=== PATIENT | female | born 1990 | race Hispanic/Latino ===

== ENCOUNTER 2019-06-17 13:23 | Emergency (ER) | payer BC ==
[2019-06-17] MEDS ORDERED: NA CHLORIDE 0.9% 1,000 ML ONE (14:06)
[2019-06-17] MEDS ORDERED: CEFTRIAXONE/SWI 1gm 1 GM/10 ML SYR ONE (14:06)
[2019-06-17 14:10] LABS: Urine Blood 1+ (NEG); Urine Glucose NEGATIVE (NEG); Urine Protein TRACE (NEG); Urine Specific Gravity 1.015 (1.005-1.030)
[2019-06-17 14:16] LABS: Urine Bacteria >50 /HPF (<20); Urine Culture Reflex Order REFLEXED
[2019-06-17 14:45] LABS: Absolute Lymphocytes (CBC) 0.8 K/uL (0.7-4.9); Basophils % 0.3 % (0-1.3); Hematocrit 35.9 % (36.0-45.0); Lymphocytes % 7.7 % (15.3-44.8); MPV 8.5 fL (7.6-11.3); RBC Red Blood Cell Count 4.11 M/uL (3.86-4.86)
[2019-06-17 15:01] LABS: BUN Blood Urea Nitrogen 6 mg/dL (7-18); Bicarbonate 22 mmol/L (21-32); Glucose Level 87 mg/dL (74-106); Potassium 3.5 mmol/L (3.5-5.1); Sodium Level 139 mmol/L (136-145)
--- NOTE | 2019-06-17 15:40 | RAD REPORT ---
EXAM DESCRIPTION: CTAbdomen Pelvis W Contrast - 06/17/2019 3:27 pm CLINICAL HISTORY: Abdominal pain. FLANK PAIN COMPARISON: <Comparisons> TECHNIQUE: Biphasic CT imaging of the abdomen and pelvis was performed with 100 ml non-ionic IV cont rast. All CT scans are performed using dose optimization technique as appropriate and may include automated exposure control or mA/KV adjustment according to patient size. FINDINGS: The lung bases are clear. The liver, spleen, pancreas, adrenal glands and kidneys are within normal limits. No bowel obstruction, free air, free fluid or abscess. Small fat containing umbilical hernia. The ramiro endix is normal. No evidence of significant lymphadenopathy. No suspicious bony findings. IUD is present in the uterus. IMPRESSION: No acute intra-abdominal or pelvic finding.
--- NOTE | 2019-06-17 15:49 | EDPHYS ---
Physician Documentation [facility] Name: Lissett Tierney Age: 29 yrs Sex: Female : 1990 Arrival Date: 06/17/2019 Time: 13:24 Bed 13 Private MD: ED Physician Zackary Kim HPI: 06/17 15:42 This 29 yrs old Female presents to ER via Ambulatory with complaints of Flank kb Pain. 15:42 The patient complains of pain in the left flank and right flank. The pain does not kb radiate. Onset: The symptoms/episode began/occurred today. Modifying factors: The symptoms are alleviated by nothing. the symptoms are aggravated by palpation/percussion. Associated signs and symptoms: Pertinent positives: dysuria, fever, urinary frequency. Severity of pain: At its worst the pain was moderate in the emergency department the pain is unchanged. The patient has experienced similar episodes in the past. The patient has not recently seen a physician. Pt reports she has had symptoms of a UTI for a week, but couldn't get a hold of her dr. Now has bliateral flank pain as well.. 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 - Social history:: Smoking status: Patient/guardian denies using tobacco. - Ebola Screening: : Patient denies travel to an Ebola-affected area in the 21 days before illness onset. ROS: 15:42 Neck: Negative for injury, pain, and swelling, Cardiovascular: Negative for chest pain, kb palpitations, and edema, Respiratory: Negative for shortness of breath, cough, wheezing, and pleuritic chest pain, Abdomen/GI: Negative for abdominal pain, nausea, vomiting, diarrhea, and constipation, MS/Extremity: Negative for injury and deformity, Skin: Negative for injury, rash, and discoloration, Neuro: Negative for headache, weakness, numbness, tingling, and seizure. 15:42 Constitutional: Positive for fever. 15:42 : Positive for urinary symptoms, flank pain, urinary frequency, burning with urination. Exam: 15:47 Constitutional: This is a well developed, well nourished patient who is awake, alert, kb and in no acute distress. Head/Face: Normocephalic, atraumatic. ENT: Nares patent. No nasal discharge, no septal abnormalities noted. Tympanic membranes are normal and external auditory canals are clear. Oropharynx with no redness, swelling, or masses, exudates, or evidence of obstruction, uvula midline. Mucous membranes moist. Neck: Trachea midline, no thyromegaly or masses palpated, and no cervical lymphadenopathy. Supple, full range of motion without nuchal rigidity, or vertebral point tenderness. No Meningismus. Chest/axilla: Normal chest wall appearance and motion. Nontender with no deformity. No lesions are appreciated. Cardiovascular: Regular rate and rhythm with a normal S1 and S2. No gallops, murmurs, or rubs. Normal PMI, no JVD. No pulse deficits. Respiratory: Lungs have equal breath sounds bilaterally, clear to auscultation and percussion. No rales, rhonchi or wheezes noted. No increased work of breathing, no retractions or nasal flaring. Abdomen/GI: Soft, non-tender, with normal bowel sounds. No distension or tympany. No guarding or rebound. No evidence of tenderness throughout. Skin: Warm, dry with normal turgor. Normal color with no rashes, no lesions, and no evidence of cellulitis. MS/ Extremity: Pulses equal, no cyanosis. Neurovascular intact. Full, normal range of motion. Neuro: Awake and alert, GCS 15, oriented to person, place, time, and situation. Cranial nerves II-XII grossly intact. Motor strength 5/5 in all extremities. Sensory grossly intact. Cerebellar exam normal. Normal gait. 15:47 Back: CVA tenderness, that is moderate, is noted bilaterally. Vital Signs: 13:32 BP 138 / 86; Pulse 101; Resp 20; Temp 99.6; Pulse Ox 98% on R/A; Weight 81.65 kg (R); aj1 Height 5 ft. 5 in. (165.10 cm) (R); 13:50 Temp 99.8(O); jp3 14:36 BP 104 / 64; Pulse 75; Resp 16; Pulse Ox 97% on R/A; Pain 10/10; rb1 15:30 BP 113 / 70; Pulse 76; Resp 15; Temp 99.0(O); Pulse Ox 99% on R/A; Pain 9/10; rb1 16:10 BP 103 / 63; Pulse 80; Resp 16; Temp 99.0(O); Pulse Ox 98% on R/A; Pain 8/10; rb1 13:32 Body Mass Index 29.95 (81.65 kg, 165.10 cm) aj1 MDM: 13:34 Patient medically screened. kb 15:47 Data reviewed: vital signs, nurses notes. Data interpreted: Pulse oximetry: on room air kb is 97 %. Interpretation: normal. Counseling: I had a detailed discussion with the patient and/or guardian regarding: the historical points, exam findings, and any diagnostic results supporting the discharge/admit diagnosis, lab results, radiology results, the need for outpatient follow up, a family practitioner, to return to the emergency department if symptoms worsen or persist or if there are any questions or concerns that arise at home. 06/17 13:34 Order name: Urine Microscopic Only; Complete Time: 14:18 kb 06/17 13:50 Order name: Urine Dipstick--Ancillary (enter results); Complete Time: 14:11 eb 06/17 13:50 Order name: Urine --Ancillary (enter results); Complete Time: 14:11 eb 06/17 13:56 Order name: CBC with Diff; Complete Time: 14:46 kb 06/17 13:56 Order name: Basic Metabolic Panel; Complete Time: 15:11 kb 06/17 14:19 Order name: Urine Culture EDSC 06/17 13:34 Order name: Urine Test (obtain specimen); Complete Time: 13:52 kb 06/17 13:34 Order name: Urine Dipstick-Ancillary (obtain specimen); Complete Time: 13:52 kb 06/17 13:56 Order name: IV Start; Complete Time: 14:31 kb 06/17 14:47 Order name: CT Abd/Pelvis - IV Contrast Only; Complete Time: 15:41 kb Administered Medications: 14:26 Drug: NS 0.9% 1000 ml Route: IV; Rate: 1000 ml; Site: left antecubital; rb1 15:33 Follow up: IV Status: Completed infusion rb1 14:26 Drug: Rocephin 1 grams Route: IV; Rate: calculated rate; Site: left antecubital; rb1 14:55 Follow up: Response: No adverse reaction; IV Status: Completed infusion rb1 Disposition: 18:06 Co-signature as Attending Physician, Zackary Kim MD. rn Disposition: 06/17/19 15:48 Discharged to Home. Impression: Urinary tract infection, site not specified. - Condition is Stable. - Discharge Instructions: Urinary Tract Infection, Adult, [id number]. - Prescriptions for Augmentin 875- 125 mg Oral Tablet - take 1 tablet by ORAL route every 12 hours for 10 days; 20 tablet. - Medication Reconciliation Form, Thank You Letter, Antibiotic Education, Prescription Opioid Use form. - Follow up: Private Physician; When: 2 - 3 days; Reason: Recheck today's complaints, Continuance of care, Re-evaluation by your physician. Follow up: Emergency Department; When: As needed; Reason: Worsening of condition. Signatures: Dispatcher [employer] EDMS Melany Mendez, ONEL-C ONEL-Mariaelena David RN RN aj1 Zackary Kim MD MD rn Barber, Rebecca, RN RN rb1 Corrections: (The following items were deleted from the chart) 16:27 15:48 06/17/2019 15:48 Discharged to Home. Impression: Urinary tract infection, site rb1 not specified. Condition is Stable. Forms are Medication Reconciliation Form, Thank You Letter, Antibiotic Education, Prescription Opioid Use. Follow up: Private Physician; When: 2 - 3 days; Reason: Recheck today's complaints, Continuance of care, Re-evaluation by your physician. Follow up: Emergency Department; When: As needed; Reason: Worsening of condition. kb
--- NOTE | 2019-06-17 15:49 | ER ---
Nurse's Notes [facility] Name: Lissett Tierney Age: 29 yrs Sex: Female : 1990 Arrival Date: 06/17/2019 Time: 13:24 Bed 13 Private MD: Diagnosis: Urinary tract infection, site not specified Presentation: 06/17 13:28 Presenting complaint: Patient states: "I think I have a kidney infection. I've gotten aj1 UTIs all my life I just haven't had one in a long time. My legs feel like they're going numb and my hands hurt too but most of my pain is in my lower back, I have pain and I have fatigue. About 30 minutes ago I took an 800 mg ibuprofen. This has been going on for about a week" Reports subjective fever. Reports dysuria, and urinary frequency. Transition of care: patient was not received from another setting of care. Onset of symptoms was 2019. Risk Assessment: Do you want to hurt yourself or someone else? Patient reports no desire to harm self or others. Initial Sepsis Screen: Does the patient meet any 2 criteria? HR > 90 bpm. No. Patient's initial sepsis screen is negative. Does the patient have a suspected source of infection? Yes: Dysuria/Frequency/Urgency/UTI. Care prior to arrival: None. 13:28 Method Of Arrival: Ambulatory aj 13:28 Acuity: TEDDY 3 aj1 Triage Assessment: 13:32 General: Appears in no apparent distress. uncomfortable, Behavior is calm, cooperative, aj1 appropriate for age. Pain: Pain currently is 8 out of 10 on a pain scale. Neuro: Level of Consciousness is awake, alert, obeys commands. Cardiovascular: Patient's skin is warm and dry. Respiratory: Airway is patent Respiratory effort is even, unlabored, Respiratory pattern is regular, symmetrical. : Reports burning with urination, urinary frequency. 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 - Social history:: Smoking status: Patient/guardian denies using tobacco. - Ebola Screening: : Patient denies travel to an Ebola-affected area in the 21 days before illness onset. Screenin:40 Abuse screen: Denies threats or abuse. Nutritional screening: No deficits noted. rb1 Tuberculosis screening: No symptoms or risk factors identified. Fall Risk None identified. Assessment: 13:40 General: Appears uncomfortable, Behavior is calm, cooperative. Pain: Complains of pain rb1 in left low back and right low back Pain radiates to abdomen Pain currently is 10 out of 10 on a pain scale. Quality of pain is described as sharp, shooting. Neuro: Level of Consciousness is awake, alert, obeys commands, Oriented to person, place, time, situation. Cardiovascular: Capillary refill < 3 seconds is brisk in bilateral fingers. Respiratory: Airway is patent Respiratory effort is even, unlabored, Respiratory pattern is regular, symmetrical. GI: Reports nausea, vomiting. : Reports pain flank(s), in lower back with urination, urinary frequency. Derm: Skin is pink, warm \\T\\ dry. 13:40 General: Reports fatigue for. Neuro: Reports numbness in right leg and left leg. rb1 14:36 Reassessment: Patient appears in no apparent distress at this time. No changes from rb1 previously documented assessment. at bedside. 15:35 Reassessment: Patient appears in no apparent distress at this time. Patient and/or rb1 family updated on plan of care and expected duration. Pain level reassessed. Patient is alert, oriented x 3, equal unlabored respirations, skin warm/dry/pink. at bedside. 16:05 Reassessment: Discharge pending due to provider needing to speak with the pt. rb1 Vital Signs: 13:32 BP 138 / 86; Pulse 101; Resp 20; Temp 99.6; Pulse Ox 98% on R/A; Weight 81.65 kg (R); aj1 Height 5 ft. 5 in. (165.10 cm) (R); 13:50 Temp 99.8(O); jp3 14:36 BP 104 / 64; Pulse 75; Resp 16; Pulse Ox 97% on R/A; Pain 10/10; rb1 15:30 BP 113 / 70; Pulse 76; Resp 15; Temp 99.0(O); Pulse Ox 99% on R/A; Pain 9/10; rb1 16:10 BP 103 / 63; Pulse 80; Resp 16; Temp 99.0(O); Pulse Ox 98% on R/A; Pain 8/10; rb1 13:32 Body Mass Index 29.95 (81.65 kg, 165.10 cm) aj1 ED Course: 13:24 Patient arrived in ED. as 13:31 Triage completed. aj1 13:32 Arm band placed on Patient placed in an exam room. aj1 13:33 Mel[facility]endez [facility]C [facility] kb 13:33 Zackary Kim MD is Attending Physician. kb 13:35 Viri Tong, GEAR is Primary Nurse. rb1 13:40 Patient has correct armband on for positive identification. Placed in gown. Bed in low rb1 position. Call light in reach. Side rails up X 1. Pulse ox on. NIBP on. Warm blanket given. 13:51 Urine collected: clean catch specimen, cloudy, yumiko colored. jp3 13:52 Urine --Ancillary (enter results) Sent. jp3 13:52 Urine Microscopic Only Sent. jp3 13:52 Urine Dipstick--Ancillary (enter results) Sent. jp3 14:24 Inserted saline lock: 22 gauge in left antecubital area, using aseptic technique. Blood rb1 collected. 15:25 CT completed. Patient tolerated procedure well. Patient moved back from CT. bq 15:28 CT Abd/Pelvis - IV Contrast Only In Process Unspecified. EDMS 16:17 No provider procedures requiring assistance completed. IV discontinued, intact, rb1 bleeding controlled, No redness/swelling at site. Pressure dressing applied. Administered Medications: 14:26 Drug: NS 0.9% 1000 ml Route: IV; Rate: 1000 ml; Site: left antecubital; rb1 15:33 Follow up: IV Status: Completed infusion rb1 14:26 Drug: Rocephin 1 grams Route: IV; Rate: calculated rate; Site: left antecubital; rb1 14:55 Follow up: Response: No adverse reaction; IV Status: Completed infusion rb1 Outcome: 15:48 Discharge ordered by . kb 16:17 Patient left the ED. rb1 16:17 Discharged to home ambulatory, with family. rb1 16:17 Condition: stable 16:17 Discharge instructions given to patient, Instructed on discharge instructions, follow up and referral plans. medication usage, Demonstrated understanding of instructions, follow-up care, medications, Prescriptions given X 1. Addendum: 06/20/2019 07:56 Addendum: Culture Results: Positive urine culture. No further action required. Bacteria i w sensitive to prescribed antibiotic. Signatures: Dispatcher [employer] EDMS Melany Mendez, HALF SOLE FITTER-C HALF SOLE FITTER-Mariaelena David RN RN aj1 Lucinda Morgan Amelia as Williams, Irene, RN RN iw Viri Tong RN RN rb1 Rafal Pastor jp3 Corrections: (The following items were deleted from the chart) 06/17 16:29 16:27 Patient left the ED. rb1 rb1
[2019-06-17 18:45] VITALS: TEMP 99.8
[2019-06-17 18:47] VITALS: BP 104/64; O2SAT 97
== END 2019-06-17 16:27 | disposition home or self-care (01) ==
LOC: ER 13:23
DX: N39.0 Urinary tract infection, site not specified (principal)
CPT/HCPCS: 96365; 96361; 87088; 85025; 87086; 80048; 36415; 81025; 87077; 87186; 74177; 99284; Q9967; J0696; J7030; 81003; 81015